=== PATIENT | female | born 1930 | race Caucasian/White ===

== ENCOUNTER 2016-10-09 12:02 | Emergency (ER) | payer MEDICARE, OTHER ==
[~2016-10-09] VITALS: Ht 172.7 cm; Wt 80.0 kg
[~2016-10-09 12:02] MED LIST: FURO10S PO; LEVA250T14 PO; LISI-363 PO; RIVA15 PO
[2016-10-09 12:16] VITALS: BP 189/84; PULSE 54; RESP 16; TEMP 98; O2SAT 97
[2016-10-09] MEDS ORDERED: TYLETAB34 PO (12:50)
--- NOTE | 2016-10-09 12:51 | PD ---
HPI Chief Complaint: Hip Injury Time Seen by Provider: 12:29 Travel History International Travel<30 days: No Contact w/Intl Traveler<30days: No Traveled to known affect area: No History of Present Illness HPI 86-year-old female complains of right hip pain, loose stool and foul-smelling urine. Patient started complaining of right low back pain with radiation to right hip and right leg 2 days ago. Patient denies any recent injury. Patient' s granddaughter states that patient has strong of the urine recently. Patient' s granddaughter states the patient has been passing liquid stool recently. Patient denies any headache. Patient denies any chest pain or shortness of breath. Patient denies abdominal pain. Patient denies any focal weakness or numbness of the extremity. The granddaughter has been giving patient ibuprofen for pain. Patient had right hip x-ray done at [facility] this morning. PFSH Past Medical History Hx Anticoagulant Therapy: No Arthritis: No Asthma: No Autoimmune Disease: No Heart Rhythm Problems: No Cancer: Yes (Breast) Cardiovascular Problems: Yes (HTN) Chemotherapy: No Chest Pain: No Congestive Heart Failure: No COPD: No Cerebrovascular Accident: No Diabetes: No Diminished Hearing: Yes ([place]) Endocrine: No GERD: No Genitourinary: No Hiatal Hernia: No Hypertension: Yes Immune Disorder: No Kidney Stones: No Musculoskeletal: No Neurologic: No Psychiatric: No Reproductive: No Respiratory: No Radiation Therapy: No Renal Failure: No Sleep Apnea: No Thyroid Disease: No Ulcer: No ?: Not Menopausal: Yes Past Surgical History Abdominal Surgery: No Cardiac Surgery: No Ear Surgery: No Endocrine Surgery: No Eye Surgery: No Genitourinary Surgery: No Gynecologic Surgery: No Hysterectomy: No Insulin Pump: No Joint Replacement: Yes Oral Surgery: No Pacemaker: Yes Thoracic Surgery: No Other Surgery: Yes (BL mastectomy ) Social History Alcohol Use: No Tobacco Use: No Substance Use: No Allergies-Medications (Allergen,Severity, Reaction): Coded Allergies: Penicillin (Verified Allergy, Severe, Rash, 10/09/16) Reported Meds & Prescriptions Reported Meds & Active Scripts Active Tylenol-Codeine #3 (Acetaminophen-Codeine) 300-30 mg Tab 1 Tab PO Q6HR PRN Review of Systems General / Constitutional: No: Fever Eyes: No: Visual changes HENT: No: Headaches Cardiovascular: No: Chest Pain or Discomfort Respiratory: No: Shortness of Breath Gastrointestinal: No: Abdominal Pain Genitourinary: No: Dysuria Musculoskeletal: Positive: Pain Skin: No Rash Neurologic: No: Weakness Psychiatric: No: Depression Endocrine: No: Polydipsia Hematologic/Lymphatic: No: Easy Bruising Physical Exam Narrative GENERAL: Well-nourished, well-developed patient. SKIN: Focused skin assessment warm/dry. HEAD: Normocephalic. EYES: No scleral icterus. No injection or drainage. NECK: Supple, trachea midline. No JVD or lymphadenopathy. CARDIOVASCULAR: Regular rate and rhythm without murmurs, gallops, or rubs. RESPIRATORY: Breath sounds equal bilaterally. No accessory muscle use. GASTROINTESTINAL: Abdomen soft, non-tender, nondistended. MUSCULOSKELETAL: No cyanosis, or edema. BACK: Nontender without obvious deformity. No CVA tenderness. Patient has no tenderness on palpation right hip area. Full range of motion of the right hip joint. Data Data Last Documented VS Vital Signs Date Time Temp Pulse Resp B/P Pulse Ox O2 Delivery O2 Flow Rate FiO2 10/09/16 12:16 98.0 54 16 189/84 97 Orders Urinalysis - C+S If Indicated (10/09/16 12:32) Cath For Specimen (10/09/16 12:32) Urine Culture (10/09/16 12:45) Labs Laboratory Tests Test 10/09/16 12:45 Urine Collection Type CATH Urine Color YELLOW Urine Turbidity CLEAR Urine pH 6.0 Urine Specific [place] 1.010 Urine Protein NEG mg/dL Urine Glucose (UA) NEG mg/dL Urine Ketones NEG mg/dL Urine Occult Blood TRACE Urine Nitrite POS Urine Bilirubin NEG Urine Leukocyte Esterase SMALL Urine RBC 0-3 /hpf Urine WBC 20-24 /hpf Urine WBC Clumps FEW Urine Squamous Epithelial 6-8 /hpf Cells Urine Bacteria MANY /hpf Microscopic Urinalysis Comment CATH-CULTURE IND Urine Collection Time 12:45 [facility] Medical Decision Making Medical Screen Exam Complete: Yes Emergency Medical Condition: Yes Interpretation(s) 13:23 PM. UA positive WBC and bacteria. Differential Diagnosis Differential diagnosis including contusion, fracture, dislocation, sciatica. Narrative Course 86-year-old female with right low back pain right hip pain. X-ray outpatient this morning at [place] [facility] reviews no acute bony injury. Stool impaction pelvic rectal area Diagnosis Primary Impression: Sciatica Qualified Code: M54.31 - Sciatica of right side Additional Impression: UTI (urinary tract infection) Qualified Code: N30.00 - Acute cystitis without hematuria Patient Instructions: General Instructions Additional Instructions: Tylenol with Codeine as needed for pain. Stool softener as directed. Fleet enema as directed. Follow-up with personal physician. Return if worse. Follow with orthopedist if persistent problem. Med/Other Pt SpecificInfo: Prescription(s) given Scripts Sulfamethoxazole-Trimethoprim (Bactrim DS)800-160 Mg Tab1 Tab PO BID #14 TAB Prov:Abelino Santos MD 10/09/16 Acetaminophen-Codeine (Tylenol-Codeine #3)300-30 mg Tab1 Tab PO Q6HR PRN (PAIN SCALE 1 TO 10) #30 TAB Prov:Abelino Santos MD 10/09/16 Disposition: 01 DISCHARGE HOME Condition: Stable Abelino Santos MD Oct 09, 2016 12:50
[2016-10-09 12:59] LABS: BLOOD, URINE TRACE (NEG); GLUCOSE,URINE NEG (NEG); KETONE, URINE NEG (NEG)
[2016-10-09 13:11] LABS: METHOD OF COLLECTION CATH; NITRITE,URINE POS (NEG); URINE COLOR YELLOW (YELLW/STRAW)
[2016-10-09 13:12] LABS: BACTERIA, URINE MANY /hpf; COMMENT (UR) CATH-CULTURE IND; CULTURE IF INDICATED CATH CULTURE IND; RBC, URINE 0-3 /hpf (0-3)
[2016-10-09] MEDS ORDERED: BACT800T5 PO (13:24)
== END 2016-10-09 13:47 | disposition home or self-care (01) ==
LOC: PHED 12:02
DX: M54.31 Sciatica, right side (principal); N30.00 Acute cystitis without hematuria; B96.20 Unspecified Escherichia coli [E. coli] as the cause of diseases classified elsewhere
CPT/HCPCS: 81001; 87077; 87086; 87186; 99284; P9612

== ENCOUNTER 2016-12-11 13:30 | Emergency (ER) | payer OTHER ==
[~2016-12-11] VITALS: Ht 172.7 cm; Wt 79.5 kg
[~2016-12-11 13:30] MED LIST changes: +BACT800T5 PO; -FURO10S PO; -LEVA250T14 PO; -LISI-363 PO; -RIVA15 PO; +TYLETAB34 PO
[2016-12-11 13:50] VITALS: BP 166/70; PULSE 69; RESP 16; TEMP 98.4; O2SAT 97
--- NOTE | 2016-12-11 14:32 | PD ---
HPI Chief Complaint: Edema Time Seen by Provider: 14:08 Travel History International Travel<30 days: No Contact w/Intl Traveler<30days: No Traveled to known affect area: No History of Present Illness HPI 86-year-old female complains of lower extremity swelling. Patient's granddaughter states that patient had bilateral lower extremity swelling for the past several weeks. 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 Patient had one episode of GI bleed while on Xarelto however Xarelto was not stopped. The GI bleed problem resolved by itself. Patient was seen by GI specialist for that at that time. No intervention was advised. Patient's granddaughter reported no recent injury. Patient denies any headache. Patient denies any chest pain or shortness of breath. Patient denies abdominal pain. Patient denies any focal weakness and numbness of extremity. Patient was seen by personal physician and had outpatient ultrasound bilateral lower extremity done today at [facility]. Ultrasound bilateral low extremity shows bilateral DVT. Patient was advised to go to ED for evaluation. Patient granddaughter states that the patient is not on any routine medication. PFSH Past Medical History Hx Anticoagulant Therapy: No Arthritis: No Asthma: No Autoimmune Disease: No Heart Rhythm Problems: No Cancer: Yes (Breast) Cardiovascular Problems: Yes (HTN) Chemotherapy: No Chest Pain: No Congestive Heart Failure: No COPD: No Cerebrovascular Accident: No Diabetes: No Diminished Hearing: Yes ([place]) Deep Vein Thrombosis: Yes Endocrine: No Gastrointestinal Disorders: No GERD: No Genitourinary: No Hiatal Hernia: No Hypertension: Yes Immune Disorder: No Implanted Vascular Access Dvce: Yes Kidney Stones: No Medical other: Yes Musculoskeletal: No Neurologic: No Psychiatric: No Reproductive: No Respiratory: No Radiation Therapy: No Renal Failure: No Sleep Apnea: No Thyroid Disease: No Ulcer: No Tetanus Vaccination: Unknown ?: Not Menopausal: Yes Past Surgical History Abdominal Surgery: No Cardiac Surgery: No Ear Surgery: No Endocrine Surgery: No Eye Surgery: No Genitourinary Surgery: No Gynecologic Surgery: No Hysterectomy: No Insulin Pump: No Joint Replacement: Yes Oral Surgery: No Pacemaker: Yes Thoracic Surgery: No Other Surgery: Yes (BL mastectomy ) Social History Alcohol Use: No Tobacco Use: No Substance Use: No Allergies-Medications (Allergen,Severity, Reaction): Coded Allergies: penicillin G (Unverified Allergy, Severe, Rash, 8/15/17) Reported Meds & Prescriptions Reported Meds & Active Scripts Active Review of Systems General / Constitutional: No: Fever Eyes: No: Visual changes HENT: No: Headaches Cardiovascular: No: Chest Pain or Discomfort Respiratory: No: Shortness of Breath Gastrointestinal: No: Abdominal Pain Genitourinary: No: Dysuria Musculoskeletal: Positive: Edema, No: Pain Skin: No Rash Neurologic: No: Weakness Psychiatric: No: Depression Endocrine: No: Polydipsia Hematologic/Lymphatic: No: Easy Bruising Physical Exam Narrative GENERAL: Well-nourished, well-developed patient. SKIN: Focused skin assessment warm/dry. HEAD: Normocephalic. EYES: No scleral icterus. No injection or drainage. NECK: Supple, trachea midline. No JVD or lymphadenopathy. CARDIOVASCULAR: Regular rate and rhythm without murmurs, gallops, or rubs. RESPIRATORY: Breath sounds equal bilaterally. No accessory muscle use. GASTROINTESTINAL: Abdomen soft, non-tender, nondistended. MUSCULOSKELETAL: Patient had +2 pitting edema lateral lower extremity. No redness no heat noted. Sensorimotor function distally intact. BACK: Nontender without obvious deformity. No CVA tenderness. Neurologic exam: Patient is awake and alert oriented to person. No obvious focal neurological deficit. Data Data Last Documented VS Vital Signs Date Time Temp Pulse Resp B/P Pulse Ox O2 Delivery O2 Flow Rate FiO2 12/11/16 13:50 98.4 69 16 166/70 97 Room Air Orders Complete Blood Count With Diff (12/11/16 14:16) Basic Metabolic Panel (Bmp) (12/11/16 14:16) Prothrombin Time / Inr (Pt) (12/11/16 14:16) Act Partial Throm Time (Ptt) (12/11/16 14:16) Rivaroxaban (Xarelto) (12/11/16 14:45) Labs Laboratory Tests Test 12/11/16 14:37 White Blood Count 9.2 TH/MM3 Red Blood Count 3.81 MIL/MM3 Hemoglobin 11.8 GM/DL Hematocrit 35.5 % Mean Corpuscular Volume 93.3 FL Mean Corpuscular Hemoglobin 31.1 PG Mean Corpuscular Hemoglobin 33.3 % Concent Red Cell Distribution Width 14.0 % Platelet Count 291 TH/MM3 Mean Platelet Volume 7.7 FL Neutrophils (%) (Auto) 73.5 % Lymphocytes (%) (Auto) 14.2 % Monocytes (%) (Auto) 6.5 % Eosinophils (%) (Auto) 3.1 % Basophils (%) (Auto) 2.7 % Neutrophils # (Auto) 6.8 TH/MM3 Lymphocytes # (Auto) 1.3 TH/MM3 Monocytes # (Auto) 0.6 TH/MM3 Eosinophils # (Auto) 0.3 TH/MM3 Basophils # (Auto) 0.2 TH/MM3 CBC Comment DIFF FINAL Differential Comment Prothrombin Time 10.5 SEC Prothromb Time International 1.0 RATIO Ratio Activated Partial 21.5 SEC Thromboplast Time Sodium Level 139 MEQ/L Potassium Level 4.7 MEQ/L Chloride Level 106 MEQ/L Carbon Dioxide Level 26.1 MEQ/L Anion Gap 7 MEQ/L Blood Urea Nitrogen 21 MG/DL Creatinine 1.30 MG/DL Estimat Glomerular Filtration 39 ML/MIN Rate Random Glucose 112 MG/DL Calcium Level 9.3 MG/DL MDM Medical Decision Making Medical Screen Exam Complete: Yes Emergency Medical Condition: Yes Interpretation(s) 1606 p.m. CBC within normal limit. BUN 21. Creatinine 1.30. GFR 39. INR 1.0. Differential Diagnosis Differential diagnosis including DVT, dependent edema, cellulitis. Narrative Course 86-year-old female with bilateral extremity edema. Ultrasound done today is positive for DVT bilateral lower extremity. Xarelto 15 mg by mouth given. Diagnosis Primary Impression: DVT, bilateral lower limbs Qualified Code: I82.403 - Acute deep vein thrombosis (DVT) of both lower extremities, unspecified vein Patient Instructions: General Instructions Additional Instructions: Takes Xarelto as directed. Follow-up with personal physician. Return if worse. Med/Other Pt SpecificInfo: Prescription(s) given Scripts Rivaroxaban (Xarelto)20 Mg Tab20 Mg PO DAILY #30 TAB Ref 0 Prov:Abelino Santos MD 12/11/16 Rivaroxaban (Xarelto)15 Mg Tab15 Mg PO Q12HR #42 TAB Ref 0 Prov:Abelino Santos MD 12/11/16 Disposition: 01 DISCHARGE HOME Condition: Stable Abelino Santos MD Dec 11, 2016 14:32
[2016-12-11] MEDS ORDERED: RIVAROXABAN 15 MG TAB PO ONE (14:45)
[2016-12-11 14:46] LABS: AUTOMATED NEUTROPHIL # 6.8 TH/MM3 (1.8-7.7); BASOPHIL # 0.2 TH/MM3 (0-0.2); BASOPHIL % 2.7 % (0.0-2.0); EOSINOPHIL # 0.3 TH/MM3 (0-0.4); EOSINOPHIL % 3.1 % (0.0-4.0); HEMATOCRIT 35.5 % (35.0-46.0); HEMO FLAGS DIFF FINAL; LYMPH % 14.2 % (9.0-44.0); LYMPHOCYTE # 1.3 TH/MM3 (1.0-4.8); MEAN CELL VOLUME 93.3 FL (80.0-100.0); MEAN CORPUSCULAR HEMOGLOBIN 31.1 PG (27.0-34.0); MEAN CORPUSCULAR HGB CONC 33.3 % (32.0-36.0); MONO % 6.5 % (0.0-8.0); NEUT % 73.5 % (16.0-70.0); PLATELET COUNT 291 TH/MM3 (150-450); RED BLOOD COUNT 3.81 MIL/MM3 (4.00-5.30); WHITE BLOOD COUNT 9.2 TH/MM3 (4.0-11.0)
[2016-12-11 14:58] LABS: POTASSIUM 4.7 MEQ/L (3.5-5.1)
[2016-12-11 15:01] LABS: BICARBONATE 26.1 MEQ/L (21.0-32.0)
[2016-12-11 15:03] LABS: APTT (PATIENT) 21.5 SEC (24.3-30.1); PROTHROMBIN TIME - PATIENT 10.5 SEC (9.8-11.6)
[2016-12-11] MEDS ORDERED: XARE20TA PO (16:32)
[2016-12-11] MEDS ORDERED: XARE15TA PO (16:32)
[2016-12-11 17:03] VITALS: BP 150/72; PULSE 70; O2SAT 96
== END 2016-12-11 17:13 | disposition home or self-care (01) ==
LOC: PHED 13:30
DX: I82.403 Acute embolism and thrombosis of unspecified deep veins of lower extremity, bilateral (principal); Z86.718 Personal history of other venous thrombosis and embolism; H91.90 Unspecified hearing loss, unspecified ear; I10 Essential (primary) hypertension
CPT/HCPCS: 80048; 85025; 85610; 85730; 99283

== ENCOUNTER 2017-04-11 10:45 | Emergency (ER) | payer OTHER ==
[~2017-04-11 10:45] MED LIST changes: -BACT800T5 PO; -TYLETAB34 PO; +XARE15TA PO; +XARE20TA PO
[2017-04-11 10:48] VITALS: BP 168/85; PULSE 82; RESP 16; TEMP 99.8; O2SAT 96
[2017-04-11 11:25] VITALS: TEMP 99.1
--- NOTE | 2017-04-11 11:36 | PD ---
HPI Chief Complaint: Respiratory Symptoms Time Seen by Provider: 11:24 Travel History International Travel<30 days: No Contact w/Intl Traveler<30days: No Traveled to known affect area: No History of Present Illness HPI 87-year-old female complains of coughing fever generalized malaise. Patient states that the symptoms started 4 days ago. Patient states the cough is persistent and wet cough. Patient denies any chest pain or shortness of breath. Patient denies abdominal pain. Patient denies any nausea vomiting diarrhea. Patient has history of DVT and on Xarelto. Patient started taking Z- Rolando 2 days ago without much relief of the cough. Z-Rolando is from an old prescription. PFSH Past Medical History Hx Anticoagulant Therapy: Yes (XARELTO) Arthritis: No Asthma: No Autoimmune Disease: No Heart Rhythm Problems: No Cancer: Yes (Breast) Cardiovascular Problems: Yes (HTN) Chemotherapy: No Chest Pain: No Congestive Heart Failure: No COPD: No Cerebrovascular Accident: No Diabetes: Yes Patient Takes Glucophage: No Diminished Hearing: Yes ([place]) Deep Vein Thrombosis: Yes Endocrine: No Gastrointestinal Disorders: No GERD: No Genitourinary: No Hiatal Hernia: No Hypertension: Yes Immune Disorder: No Implanted Vascular Access Dvce: Yes Kidney Stones: No Musculoskeletal: No Neurologic: No Psychiatric: No Reproductive: No Respiratory: No Radiation Therapy: No Renal Failure: No Sleep Apnea: No Thyroid Disease: No Ulcer: No Influenza Vaccination: Yes Menopausal: Yes Past Surgical History Abdominal Surgery: No Cardiac Surgery: No Ear Surgery: No Endocrine Surgery: No Eye Surgery: No Genitourinary Surgery: No Gynecologic Surgery: No Hysterectomy: No Insulin Pump: No Joint Replacement: Yes Oral Surgery: No Pacemaker: Yes Thoracic Surgery: No Other Surgery: Yes (BL mastectomy ) Social History Alcohol Use: No Tobacco Use: No Substance Use: No Allergies-Medications (Allergen,Severity, Reaction): Coded Allergies: penicillin G (Unverified Allergy, Severe, Rash, 04/11/17) Reported Meds & Prescriptions Reported Meds & Active Scripts Active Xarelto (Rivaroxaban) 20 Mg Tab 20 Mg PO DAILY Review of Systems General / Constitutional: No: Fever Eyes: No: Visual changes HENT: No: Headaches Cardiovascular: No: Chest Pain or Discomfort Respiratory: Positive: Cough, No: Shortness of Breath Gastrointestinal: No: Abdominal Pain Genitourinary: No: Dysuria Musculoskeletal: No: Pain Skin: No Rash Neurologic: No: Weakness Psychiatric: No: Depression Endocrine: No: Polydipsia Hematologic/Lymphatic: No: Easy Bruising Physical Exam Narrative GENERAL: Well-nourished, well-developed patient. SKIN: Focused skin assessment warm/dry. HEAD: Normocephalic. EYES: No scleral icterus. No injection or drainage. NECK: Supple, trachea midline. No JVD or lymphadenopathy. CARDIOVASCULAR: Regular rate and rhythm without murmurs, gallops, or rubs. RESPIRATORY: Breath sounds equal bilaterally. No accessory muscle use. GASTROINTESTINAL: Abdomen soft, non-tender, nondistended. MUSCULOSKELETAL: No cyanosis, or edema. BACK: Nontender without obvious deformity. No CVA tenderness. Neurologic exam normal. Data Data Last Documented VS Vital Signs Date Time Temp Pulse Resp B/P (MAP) Pulse Ox O2 Delivery O2 Flow Rate FiO2 04/11/17 11:42 Room Air 04/11/17 11:25 99.1 04/11/17 10:48 82 16 96 Orders Orders Complete Blood Count With Diff (04/11/17 11:31) Basic Metabolic Panel (Bmp) (04/11/17 11:31) Prothrombin Time / Inr (Pt) (04/11/17 11:31) Act Partial Throm Time (Ptt) (04/11/17 11:31) Urinalysis - C+S If Indicated (04/11/17 11:31) Influenzae A/B Antigen (04/11/17 11:31) Chest, Single Ap (04/11/17 11:31) Iv Access Insert/Monitor (04/11/17 11:31) Ecg Monitoring (04/11/17 11:31) Oximetry (04/11/17 11:31) Cath For Specimen (04/11/17 12:11) Urine Culture (04/11/17 12:05) Labs Laboratory Tests Test 04/11/17 11:30 04/11/17 12:05 White Blood Count 5.3 TH/MM3 Red Blood Count 4.18 MIL/MM3 Hemoglobin 13.3 GM/DL Hematocrit 38.9 % Mean Corpuscular Volume 93.0 FL Mean Corpuscular Hemoglobin 31.9 PG Mean Corpuscular Hemoglobin Concent 34.3 % Red Cell Distribution Width 13.6 % Platelet Count 162 TH/MM3 Mean Platelet Volume 8.4 FL Neutrophils (%) (Auto) 74.9 % Lymphocytes (%) (Auto) 10.9 % Monocytes (%) (Auto) 11.6 % Eosinophils (%) (Auto) 2.1 % Basophils (%) (Auto) 0.5 % Neutrophils # (Auto) 4.0 TH/MM3 Lymphocytes # (Auto) 0.6 TH/MM3 Monocytes # (Auto) 0.6 TH/MM3 Eosinophils # (Auto) 0.1 TH/MM3 Basophils # (Auto) 0.0 TH/MM3 CBC Comment DIFF FINAL Differential Comment Prothrombin Time 11.3 SEC Prothromb Time International Ratio 1.1 RATIO Activated Partial Thromboplast Time 27.6 SEC Blood Urea Nitrogen 23 MG/DL Creatinine 1.36 MG/DL Random Glucose 99 MG/DL Calcium Level 9.0 MG/DL Sodium Level 132 MEQ/L Potassium Level 4.5 MEQ/L Chloride Level 100 MEQ/L Carbon Dioxide Level 25.1 MEQ/L Anion Gap 7 MEQ/L Estimat Glomerular Filtration Rate 37 ML/MIN Urine Color YELLOW Urine Turbidity HAZY Urine pH 5.5 Urine Specific [place] 1.016 Urine Protein TRACE mg/dL Urine Glucose (UA) NEG mg/dL Urine Ketones NEG mg/dL Urine Occult Blood NEG Urine Nitrite NEG Urine Bilirubin NEG Urine Urobilinogen 2.0 MG/DL Urine Leukocyte Esterase LARGE Urine RBC 4 /hpf Urine WBC 46 /hpf Urine WBC Clumps OCC Urine Squamous Epithelial Cells 1 /hpf Urine Bacteria MOD /hpf Urine Mucus FEW /lpf Microscopic Urinalysis Comment CULTURE INDICATED MDM Medical Decision Making Medical Screen Exam Complete: Yes Emergency Medical Condition: Yes Interpretation(s) Last Impressions Chest X-Ray 04/11/17 1131 Signed Impressions: Service Date/Time: March 11:39 - CONCLUSION: No acute cardiopulmonary disease. Bala Rivera MD 1326 PM. CBC within normal limit. Sodium 132. BUN 23. Creatinine 1.36. GFR 37. UA positive with WBC and bacteria. Differential Diagnosis Differential diagnosis including URI, bronchitis, pneumonia, viral syndrome. Narrative Course 87-year-old female with persistent cough. Patient's on day #3 of Z-Rolando. Levaquin 500 mg by mouth given. Diagnosis Primary Impression: Bronchitis Additional Impression: UTI (urinary tract infection) Qualified Codes: N30.00 - Acute cystitis without hematuria Patient Instructions: General Instructions Additional Instructions: Stop Z-Rolando. Levaquin as directed. Follow-up with personal physician. Return if worse. Med/Other Pt SpecificInfo: Prescription(s) given Scripts Levofloxacin (Levaquin) 500 Mg Tablet 500 MG PO DAILY for Infection, #7 TAB 0 Refills Prov: Abelino Santos MD 04/11/17 Disposition: 01 DISCHARGE HOME Condition: Stable Abelino Santos MD Apr 11, 2017 11:36
[2017-04-11 11:56] LABS: BASOPHIL % 0.5 % (0.0-2.0); EOSINOPHIL # 0.1 TH/MM3 (0-0.4); EOSINOPHIL % 2.1 % (0.0-4.0); HEMATOCRIT 38.9 % (35.0-46.0); HEMOGLOBIN 13.3 GM/DL (11.6-15.3); LYMPH % 10.9 % (9.0-44.0); LYMPHOCYTE # 0.6 TH/MM3 (1.0-4.8); MEAN CORPUSCULAR HEMOGLOBIN 31.9 PG (27.0-34.0); MEAN CORPUSCULAR HGB CONC 34.3 % (32.0-36.0); MEAN PLATELET VOLUME 8.4 FL (7.0-11.0); MONO % 11.6 % (0.0-8.0); MONOCYTE # 0.6 TH/MM3 (0-0.9); NEUT % 74.9 % (16.0-70.0); PLATELET COUNT 162 TH/MM3 (150-450); RED BLOOD COUNT 4.18 MIL/MM3 (4.00-5.30); RED CELL DISTRIBUTION WIDTH 13.6 % (11.6-17.2); WHITE BLOOD COUNT 5.3 TH/MM3 (4.0-11.0)
[2017-04-11 12:02] LABS: INTERNATIONAL NORMALIZED RATIO 1.1 RATIO; PROTHROMBIN TIME - PATIENT 11.3 SEC (9.8-11.6)
--- NOTE | 2017-04-11 12:07 | RADRPT ---
EXAM DATE/TIME: 04/11/2017 11:39 [facility] COMPARISON: CHEST SINGLE AP, June 08, 2015, 13:21. INDICATIONS : Cough, congestion, fever. MEDICAL HISTORY : Hypertension. Diabetes mellitus type II. Carcinoma, breast. DVT. Congestive heart failure. SURGICAL HISTORY : Mastectomy, bilateral. ENCOUNTER: Initial ACUITY: 4 - 6 days PAIN SCORE: 0/10 LOCATION: Bilateral chest FINDINGS: The heart and mediastinal structures are stable. The pulmonary vascular pattern is normal. The lungs are clear. Bilateral mastectomies have been performed. CONCLUSION: No acute cardiopulmonary disease. Bala Rivera MD on April 11, 2017 at 12:03 Board Certified Radiologist. This report was verified electronically.
[2017-04-11 12:10] LABS: BICARBONATE 25.1 MEQ/L (21.0-32.0); CREATININE 1.36 MG/DL (0.50-1.00)
[2017-04-11 12:43] LABS: BACTERIA, URINE MOD /hpf; BILIRUBIN, URINE NEG (NEG); BLOOD, URINE NEG (NEG); GLUCOSE,URINE NEG (NEG); KETONE, URINE NEG (NEG); MUCUS URINE FEW /lpf (OCC); NITRITE,URINE NEG (NEG); PH, URINE 5.5 (5.0-8.5); SQUAMOUS EPITHELIAL CELL URINE 1 /hpf (0-5); URINE COLOR YELLOW (YELLW/STRAW); URINE LEUKOCYTE ESTERASE LARGE (NEG); WHITE BLOOD CELL CLUMPS OCC
[2017-04-11] MEDS ORDERED: LEVOFLOXACIN 500 MG TAB PO ONE (13:30)
[2017-04-11] MEDS ORDERED: LEVA500T33 PO (13:36)
== END 2017-04-11 14:04 | disposition home or self-care (01) ==
LOC: NEPC 10:45
DX: J40 Bronchitis, not specified as acute or chronic (principal); N30.00 Acute cystitis without hematuria; B96.20 Unspecified Escherichia coli [E. coli] as the cause of diseases classified elsewhere; Z79.01 Long term (current) use of anticoagulants; Z86.718 Personal history of other venous thrombosis and embolism
CPT/HCPCS: 71010; 80048; 81001; 85025; 85610; 85730; 87077; 87086; 87186; 87804; 99285

== ENCOUNTER 2017-08-06 21:12 | Emergency (ER) | payer OTHER ==
[~2017-08-06] VITALS: Ht 172.7 cm; Wt 80.0 kg
[~2017-08-06 21:12] MED LIST changes: +LEVA500T33 PO; -XARE15TA PO
[2017-08-06 21:41] VITALS: BP 165/80; PULSE 74; RESP 18; TEMP 98.3; O2SAT 97
== END 2017-08-07 | disposition left against medical advice (07) ==
LOC: NED 21:12
DX: Z00.00 Encounter for general adult medical examination without abnormal findings (principal); Z53.21 Procedure and treatment not carried out due to patient leaving prior to being seen by health care provider
CPT/HCPCS: 99281

== ENCOUNTER 2017-09-09 16:59 | Emergency (ER) | payer OTHER ==
[~2017-09-09] VITALS: Ht 172.7 cm; Wt 81.5 kg
[2017-09-09 17:07] VITALS: BP 180/78; PULSE 80; RESP 16; TEMP 98.2
[2017-09-09] MEDS ORDERED: LIDOCAINE HCL 4% TOPICAL SOLN 50 ML BTL TOPICAL ONE (17:30)
--- NOTE | 2017-09-09 17:51 | PD ---
HPI Chief Complaint: Skin Problem Time Seen by Provider: 17:17 Travel History International Travel<30 days: No Contact w/Intl Traveler<30days: No Traveled to known affect area: No History of Present Illness HPI 87-year-old female with history of chronic left lower extremity wounds presents emergency department for evaluation of a right forearm skin tear versus laceration that she sustained today. States that she was being wheeled out of the wound care facility when she accidentally bumped her forearm resulting in this wound. They advised she come to the emergency department for evaluation and treatment. Denies numbness or tingling. Say the area is mildly painful. PFSH Past Medical History Hx Anticoagulant Therapy: Yes Arthritis: No Asthma: No Autoimmune Disease: No Heart Rhythm Problems: No Cancer: Yes (Breast) Cardiovascular Problems: Yes (HTN) Chemotherapy: No Chest Pain: No Congestive Heart Failure: No COPD: No Cerebrovascular Accident: No Diabetes: Yes Diminished Hearing: Yes ([place]) Deep Vein Thrombosis: Yes Endocrine: No Gastrointestinal Disorders: No GERD: No Genitourinary: No Hiatal Hernia: No Hypertension: Yes Immune Disorder: No Implanted Vascular Access Dvce: Yes Kidney Stones: No Musculoskeletal: No Neurologic: No Psychiatric: No Reproductive: No Respiratory: No Radiation Therapy: No Renal Failure: No Sleep Apnea: No Thyroid Disease: No Ulcer: No ?: Not Menopausal: Yes Past Surgical History Abdominal Surgery: No Cardiac Surgery: No Ear Surgery: No Endocrine Surgery: No Eye Surgery: No Genitourinary Surgery: No Gynecologic Surgery: No Hysterectomy: No Insulin Pump: No Joint Replacement: Yes Oral Surgery: No Pacemaker: Yes Thoracic Surgery: No Other Surgery: Yes (BL mastectomy ) Social History Alcohol Use: No Tobacco Use: No Substance Use: No Allergies-Medications (Allergen,Severity, Reaction): Coded Allergies: penicillin G (Unverified Allergy, Severe, Rash, 09/09/17) Reported Meds & Prescriptions Reported Meds & Active Scripts Active Xarelto (Rivaroxaban) 20 Mg Tab 20 Mg PO DAILY Review of Systems Except as stated in HPI: all other systems reviewed are Neg Physical Exam Narrative GENERAL: Well-nourished, well-developed patient. SKIN: Focused skin assessment warm/dry. Right forearm-3 x 4 cm area of a deep skin tear. Area of adipose tissue exposed , bleeding controlled. No evidence of deep tissue involvement. Not grossly contaminated. Avulsed skin is slightly retracted HEAD: Normocephalic. EYES: No scleral icterus. No injection or drainage. NECK: Supple, trachea midline. No JVD or lymphadenopathy. CARDIOVASCULAR: Regular rate and rhythm without murmurs, gallops, or rubs. RESPIRATORY: Breath sounds equal bilaterally. No accessory muscle use. MUSCULOSKELETAL: No cyanosis, or edema. BACK: Nontender without obvious deformity. No CVA tenderness. Neurovascularly intact upper extremities Data Data Last Documented VS Vital Signs Date Time Temp Pulse Resp B/P (MAP) Pulse Ox O2 Delivery O2 Flow Rate FiO2 09/09/17 17:07 98.2 80 16 180/78 (112) Orders Orders Lidocaine 4% Top Soln (Xylocaine 4% Top (09/09/17 17:30) Wound Care (09/09/17 17:22) Ed Discharge Order (09/09/17 17:57) [facility] Medical Decision Making Medical Screen Exam Complete: Yes Emergency Medical Condition: Yes Differential Diagnosis Right forearm skin tear, skin laceration, skin avulsion Narrative Course 87-year-old female presents emergency department for evaluation of a skin tear versus avulsion to the right form. Physical exam findings demonstrate an avulsion approximately 3 cm x 4 cm with skin flap slightly retracted. Bleeding controlled. No evidence of deep tissue involvement although some adipose tissue is exposed. Site was cleansed thoroughly with saline and Betadine after applying lidocaine topically. The avulsed skin was pulled to cover the wound and lightly held in place with Steri-Strips. Xeroform applied. Wound dressed. Patient is advised to follow-up with a primary care physician within 2-3 days for wound check. Advised on wound care. Diagnosis Primary Impression: Skin tear of left forearm without complication Qualified Codes: S51.812A - Laceration without foreign body of left forearm, initial encounter Referrals: [facility] Primary Care Physician Additional Instructions: Follow up with your primary care physician within 2-3 days. Keep area clean and dry for 24 hours. After 24 hours, you may bathe as normal but dry the area thoroughly. Change dressings daily but you may leave the yellow gauze on until it falls off on its own. The white strips may also fall off on their own. If bleeding starts, apply pressure and elevate the area. If you developed increased redness, swelling, or pain return to the emergency department as this could be a sign of infection. Disposition: 01 DISCHARGE HOME Condition: Stable Echo Guerra September 09, 2017 17:51
== END 2017-09-09 18:10 | disposition home or self-care (01) ==
LOC: PHEFT 16:59
DX: S51.811A Laceration without foreign body of right forearm, initial encounter (principal); I10 Essential (primary) hypertension; E11.9 Type 2 diabetes mellitus without complications; W22.8XXA Striking against or struck by other objects, initial encounter; Z86.718 Personal history of other venous thrombosis and embolism; Z79.899 Other long term (current) drug therapy; Z88.0 Allergy status to penicillin
CPT/HCPCS: 99282